=== PATIENT | female | born 1970 | race Caucasian/White ===

== ENCOUNTER 2016-06-23 16:48 | Emergency (ER) | payer BC ==
[2016-06-23 16:58] VITALS: BP 135/83
--- NOTE | 2016-06-23 17:01 | EDPHY ---
H & P Time Seen by Provider: 06/23/16 17:00 HPI/ROS: 45-year-old female presents complaining of scratchy throat and cough productive of yellow phlegm. She states she has been feeling dizzy as well. No nausea vomiting diarrhea, no fevers or chills. Review of systems General no fever no chills no weakness HEENT no eye pain no eye discharge. No eye redness, no sore throat Respiratory positive cough, no shortness of breath Cardiac no chest pain, no peripheral edema GI no abdominal pain, no diarrhea, no constipation, no nausea, no vomiting no flank pain, no hematuria, no dysuria Musculoskeletal no myalgias, no joint pain Heme no easy bruising, no easy bleeding Endo no polyuria, no polydipsia Skin no rashes, no pruritus Neuro no syncope, positive dizziness, no headaches Psych is no suicidal ideation, no homicidal ideation Past Medical/Surgical History: Asthma Frequent bronchitis Social History: No alcohol or drug use Smoking Status: Never smoked Physical Exam: 45-year-old female Alert and oriented nontoxic appearance, no acute distress afebrile Atraumatic normocephalic Extraocular muscles intact, anicteric Nares mild yellowish discharge Oropharynx mild erythema no tonsillar swelling no exudate no uvular deviation, tolerating own secretions Neck supple no lymphadenopathy Lungs clear to auscultation bilaterally Heart regular rate and rhythm Abdomen normoactive bowel sounds soft nontender Extremities no cyanosis clubbing or edema Skin no rash Constitutional: Initial Vital Signs Temperature (C) 36.6 C 06/23/16 16:56 Heart Rate 77 06/23/16 16:56 Respiratory Rate 18 06/23/16 16:56 Blood Pressure 135/83 H 06/23/16 16:56 O2 Sat (%) 97 06/23/16 16:56 O2 Delivery Mode Room Air Allergies/Adverse Reactions: No Known Allergies Allergy (Unverified 06/23/16 16:55) Home Medications: Medication Instructions Recorded predniSONE 40 mg PO DAILY #10 tab 06/23/16 Medical Decision Making ED Course/Re-evaluation: Patient seen and evaluated for cold symptoms and productive cough Chest x-ray Negative Patient given DuoNeb Lungs clear after DuoNeb Impression Bronchitis Asthma/reactive airway Plan We will add prednisone burst 40 mg p. o. daily x5 days to current regimen Rest drink plenty of liquids, symptomatic care for cold symptoms Follow up with primary care physician - Data Points Medications Given: Discontinued Medications Albuterol/Ipratropium (Duoneb) 3 ml IH EDNOW ONE Stop: 06/23/16 17:15 Last Admin: 06/23/16 17:15 Dose: 3 ml Departure - Departure Disposition: Home, Routine, Self-Care Clinical Impression: Bronchitis, Asthma Condition: Good Instructions: Asthma (ED), Acute Bronchitis (ED), Reactive Airways Disease (ED) Referrals: DALILA SOSA MD [Other] - As per Instructions Prescriptions: predniSONE 40 mg PO DAILY #10 tab
[2016-06-23] MEDS ORDERED: IPRATROPIUM/ALBUTEROL 3 ML DEYVIAL IH ONE (17:14)
[2016-06-23 18:10] VITALS: PULSE 78; RESP 16; TEMP 98.2; O2SAT 98
== END 2016-06-23 18:03 | disposition home or self-care (01) ==
LOC: CED 16:48
DX: J45.901 Unspecified asthma with (acute) exacerbation (principal)
CPT/HCPCS: 71020-PO

== ENCOUNTER 2017-01-26 17:38 | Emergency (ER) | payer BC, OTHER ==
[2017-01-26] MEDS ORDERED: LET GEL TOPICAL 1 EA SYR TP ONE (18:03)
--- NOTE | 2017-01-26 18:56 | EDPHY ---
H & P Time Seen by Provider: 01/26/17 17:49 HPI/ROS: This patient was helping carry a pain ball machine downstairs holding above her head when it abruptly lowered striking her if scalp causing a laceration. She reports only localized pain at the site of the laceration or she reports moderate bleeding from the injury that occurred shortly prior to arrival. She denies any generalized headache. However she is nervous about having intracranial head injury. Her accompanies her and was with her at the time of the injury. No LOC. She was not dazed. Her drove her in by private vehicle for further evaluation. ROS: Neuro: No numbness tingling, focal weakness, confusion, retrograde amnesia or other complaints. No visual changes. Musculoskeletal: No midline neck or back pain no extremity injuries. 5 point ROS is otherwise negative. Past Medical/Surgical History: Otherwise healthy Smoking Status: Never smoked Physical Exam: Physical exam: Vital signs are normal General: Patient is in no acute distress. HEENT: Is no external evidence of trauma on exam except for a 3 cm linear laceration the frontal scalp a few cm posterior to the hairline. This wound goes to subcutaneous tissue, with no foreign bodies, mild bleeding, no injury to the [place]. Nose atraumatic. Ears: Clear bilaterally with no hemotympanum. Oropharynx: No dental trauma or malocclusion. No intraoral lacerations. Eyes: Pupils are equal and reactive to light. Extraocular motions are intact. Optic fundi: Clear with no papilledema or hemorrhage. Neck: The patient has no midline neck tenderness and retains a full range of motion without increase in pain. Cardiac: Brisk capillary refill is intact throughout Extremities: Atraumatic Neuro: GCS of 15. Cranial nerves II through XII intact. Cerebellar exam is normal as judged by symmetric rapid hand movements bilaterally. No pronator drift. No sensory or motor deficits are appreciated. Constitutional: Initial Vital Signs Temperature (C) 36.8 C 01/26/17 17:49 Heart Rate 67 01/26/17 17:49 Respiratory Rate 14 01/26/17 17:49 Blood Pressure 126/85 H 01/26/17 17:49 O2 Sat (%) 97 12 17:49 O2 Delivery Mode Room Air Allergies/Adverse Reactions: No Known Allergies Allergy (Unverified 01/26/17 17:54) Home Medications: Medication Instructions Recorded predniSONE 40 mg PO DAILY #10 tab 06/23/16 Claritin 01/26/17 Flonase Nasal [place] 01/26/17 MDM/Departure - MDM Procedures: The wound is 3 cm in length described physical exam. The wound was copiously irrigated with saline. The wound was explored for foreign bodies and none were found. The wound was prepped and draped in the normal sterile fashion. The wound was anesthetized using let solution followed by 1% plain lidocaine with sodium bicarb buffer, 27 gauge needle-2 mL with good effect. The edges were reapproximated using 6 marcy with good hemostasis and cosmesis. The patient tolerated the procedure well. No no complications. Medications Given: Discontinued Medications Tetracaine/Epinephrine/Lidocaine (Let Gel Topical) 1 ea TP EDNOW ONE Stop: 01/26/17 18:04 Last Admin: 01/26/17 18:10 Dose: 1 ea ED Course/Re-evaluation: I counseled patient regarding stable care Discussion: Patient with minor head injury without evidence of concussion, cranial fracture, intracranial bleed, neck injury or other concerning findings. - Depart Disposition: Home, Routine, Self-Care Clinical Impression: Minor head injury without loss of consciousness Qualifiers: Encounter type: initial encounter Qualified Code(s): S09.90XA - Unspecified injury of head, initial encounter Scalp laceration Qualifiers: Encounter type: initial encounter Qualified Code(s): S01.01XA - Laceration without foreign body of scalp, initial encounter Condition: Good Instructions: Head Injury (ED), Staple Care (ED) Additional Instructions: Diagnoses: 1. Minor head injury 2. Scalp laceration Plan: Keep the scalp wound clean and dry for the next day and half to 2 days. Then clean it daily with baby shampoo. Tylenol and/or ibuprofen if needed for pain Return in 5-7 days for staple removal Return sooner if you develop unbearable headache, confusion, vomiting more than once or other concerns Referrals: NONE *PRIMARY CARE P,. [Primary Care Provider] - As per Instructions
[2017-01-26 19:10] VITALS: BP 135/88; PULSE 68; RESP 16; TEMP 98.4; O2SAT 96
== END 2017-01-26 19:09 | disposition home or self-care (01) ==
LOC: CED 17:38
PROC: 0HQ0XZZ Repair Scalp Skin, External Approach (ICD-10-PCS; principal; 2017-01-26)
DX: S01.01XA Laceration without foreign body of scalp, initial encounter (principal); W22.8XXA Striking against or struck by other objects, initial encounter